=== PATIENT | female | born 1940 | race Caucasian/White ===

== ENCOUNTER 2024-09-14 11:31 | Outpatient (REF) | payer OTHER, SELFPAY ==
[2024-09-14 13:18] LABS: Hematocrit 39.5 % (37.0-47.0); Mean Corpuscular HGB Conc 32.9 g/dl (31.0-35.0); Mean Corpuscular Hemoglobin 30.7 pg (27.0-33.0); Mean Corpuscular Volume 93.2 fL (80.0-98.0); Mean Platelet Volume 10.9 fL (9.4-12.3); Platelet Count 223 X10*3/uL (160-400); Red Blood Count 4.24 X10*6/uL (4.20-5.50); Red Cell Distribution Width 13.2 % (11.0-16.0); White Blood Count 10.7 X10*3/uL (4.8-10.8)
[2024-09-14 13:34] LABS: Estimated Average Glucose 117 mg/dL; Hemoglobin A1C 143.1148 umol/L; Hemoglobin A1c % 5.7 % (<6.0); Total Hemoglobin (HGBA1C) 3709.0907 umol/L
--- OUTSIDE RECORDS SUMMARY | 2024-09-14 13:55 | XMS_ITS | Continuity of Care Document ---
Author Organization [place] [facility], [facility] Address [address] [place] [address] [place] [address] Assessment Encounter Date Assessment Date Assessment LastModified by Organization Details LastModified Time 09/14/2024 09/14/2024 Patient presented for medication refill. Patient tolerating medication well at current dose without adverse effects. Refilled as below. Discussed plan with patient, who expressed understanding . Follow up as noted below. [email or web address] Not available 09/14/2024 10:42:22 Plan of Treatment Reminders Order Date Submit Date Provider Last Modified By Organization Details Last Modified Time Details Appointments NEW PROBLEM 15 2024 10:30A M KEVIN PATEL Not available Not available Not available Lab PTH (parathyr oid hormone), intact + calcium, serum or plasma 2024 025 [facility], [address] [place] [address], [id number], 09/14/2024 10:48:27 vitamin B12 + folate, serum or blood 2024 025 [facility], [address] [place] [address], [id number], 09/14/2024 10:48:28 iron + TIBC + ferritin, serum 2024 025 [facility], [address] [place] [address], [id number], 09/14/2024 10:48:28 vitamin D, 25-hydrox y, total, serum 2024 025 [facility], [address] [place] [address], [place], [address], 09/14/2024 10:48:27 TSH + free T4, serum 2024 [facility], [address] [place] [address], [id number], 09/14/2024 10:48:28 CBC w/ auto diff 2024 [facility], [address] [place] [address], [id number], 09/14/2024 10:48:27 hemoglobi n A1c, QN, blood 2024 [facility], [address] [place] [address], [place], [address], 09/14/2024 10:48:27 CMP, serum or plasma 2024 025 [facility], [address] [place] [address], [place], [address], 09/14/2024 10:48:[address] referral 2024 [facility], [address], [place], [address], 09/14/2024 13:36:14 occupatio nal therapist referral 2024 025 [facility], [address], [address], [place], [address], 09/14/2024 13:35:20 Procedures None recorded. Surgeries None recorded. Imaging MAMMO, screening , digital, bilateral 2024 025 [email or web address] [facility], [address] [facility], [place], [address], 09/14/2024 11:35:41 PFT, complete 2024 025 [email or web address] [facility], [address] [place], [address], 09/14/2024 11:35:41 CT, chest, w/o contrast 2024 025 [email or web address] [facility], [address] [place], [address], 09/14/2024 11:35:41 Medication Orders None recorded. Patient TargetsNo targets recorded. Patient InstructionsNo instructions recorded. Reason for Referral Occupational Therapist Refer ral for Bilateral hand weakness bilateral hand weakness and stiffness, hx of OA Referring Physician: Stephanie Finch, Internal Medicine, Encounter Date: 09/14/2024 Medical I D Sales Referral for Moses ateral hearing loss needs eval for hearing loss Referring Physician: Stephanie Finch [facility], Encounter Date: 09/14/2024 Problems Name Problem SNOMED Code Status Onset Date Resolution Date Notes Provider Name and Address Organization Details Recorded Time Anxiety 77004424 Active 2022 Lexii resendez [facility] 3 12:04:11 Chronic sinusiti s 84608857 Active 2022 Lexii resendez [facility] 3 12:04:28 Bleeding from nose 152354843 Active 2022 Lexii resendez [facility] 3 12:04:41 Osteopor osis 93935481 Active 2022 Lexii resendez [facility] 3 12:04:49 Weight loss 82582058 Active 2022 Lexii resendez [facility] 3 12:05:09 Gastroes ophageal reflux disease 607983623 Active 2022 Lexii resendez [facility] 3 12:05:23 Candidia sis 64907273 Active 2022 Lexii resendez [facility] 3 12:05:28 Esophagi tis 75566161 [facility]omnia 963688827 [facility] 12:[facility]57 Gastriti s 9440130 [facility] 12:06[facility]02 Dehydrat ion 18446084 Active 2022 KEVIN PATEL [address] [place], [address], [facility] 3 11:56:03 White blood cell count outside referenc e range 413922521 Active 2022 related to teeth infection KEVIN PATEL [address] [place], [address], [facility] 3 12:04:10 Muscle weakness 96177388 Active 2022 KEVIN PATEL [address] [place] [address], [address], [facility] 3 12:04:35 Mitral valve disorder 81913017 Active 2022 EKVIN PATEL [address] [place] [address], [address], [facility] 3 12:12:00 Vertigo 760393669 Active 2022 KEVIN PATEL [address] [place] [address], [address], [facility] 3 16:29:47 Candidia sis of skin 27143324 Active 2023 KEVIN APTEL [address] [place] [address], [address], [facility] 4 14:21:55 Fatigue 21896192 Active 2023 KEVIN PATEL [address] [place] [address], [address], [facility] 4 14:27:28 Failure of dental prosthes is 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 Active 2023 KEVIN PATEL [address] [place], [address], [facility] 4 14:34:38 Pain in right thumb 22447685936 99974 Active 2023 KEVIN PATEL [address] [place], [address], [facility] 4 14:35:48 Otalgia of right ear 0693942154 Active 2023 KEVIN PATEL [address] [place], [address], [facility] 4 14:40:02 Bilatera l hand weakness 00065215317 289628 Active 2024 KEVIN PATEL [address] [place], [address], [facility] 5 10:51:16 Internal hemorrho ids 31318578 Active 2024 KEVIN PATEL [address] [place], [address], [facility] 5 10:54:53 Dyspnea 743223363 Active 2024 KEVIN PATEL [address] [place], [address], [facility] 5 10:59:04 Bilatera l hearing loss 00590590 Active 2024 KEVIN PATEL [address] [place], [address], [facility] 5 11:05:01 Notes:reports having a weak respiratory system Problem Notes None recorded. Procedures Surgical History Date Name Laterality Status Provider Name and Address Organization Details Recorded Time Total Hysterectomy completed Lexii Roman [facility] 07/17/2022 12:03:40 Imaging Results None recorded. Procedure Notes None recorded. Medical Equipment None Reported. Allergies Allergen ID Allergen Name Allergen Category Reaction Reaction Severity Criticality Documentation Date Start Date Code Code System Note Provider Name and Address Organization Details Recorded Time 6368 penicilli n V Not available Not available Not available Not available 07/17/2022 7984 [facility] 12:03:51 6369 azithromy roly medicatio n Not available Not available Not available 07/19/2022 96324 RxNorm rapid heart beat KEVIN PATEL [address] [place], [address] 11:44:53 Medications Name Sig Start Date Stop Date Status Note LastModified by Organization Details LastModified Time cephalexin 250 mg capsule TAKE 1 CAPSULE BY MOUTH THREE TIMES DAILY DIRECTED . START 1 DAY BEFORE SURGERY 07/17 completed Not Available Not Available Not Available Remeron 15 mg tablet Take 1 tablet every day by oral route. 01/25 completed uses as needed Not Available Not Available Not Available fluorourac il 5 % topical cream APPLY TO AFFECTED SCALY AREAS FOR SEVERAL WEEKS UNTIL RED AND CRUSTED TWICE DAILY 09/14 completed Not Available Not Available Not Available cephalexin 500 mg capsule TAKE 1 CAPSULE BY MOUTH THREE TIMES DAILY DIRECTED . START 1 DAY BEFORE SURGERY 09/14 completed Not Available Not Available Not Available ketoconazo le 2 % topical cream APPLY TOPICALL Y TO THE AFFECTED AREA DAILY 09/14 completed Not Available Not Available Not Available doxycyclin e hyclate 100 mg tablet TAKE 1 TABLET BY MOUTH TWICE DAILY 07/17 completed Not Available Not Available Not Available chlorhexid ine gluconate 0.12 % mouthwash RINSE WITH 15ML TWICE DAILY THEN SPIT OUT. START MORNING AFTER SURGERY 07/17 completed Not Available Not Available Not Available Vitamin D active Not Available Not Deisy ilable Not Available cephalexin 750 mg capsule TAKE 1 CAPSULE BY MOUTH TWICE DAILY DIRECTED 07/17 completed Not Available Not Available Not Available Clear Eyes Dry Itchy Relief active Not Available Not Available Not Available Vitals Date Recorded Body height Body mass index (BMI) Body weight Heart rate Oxygen saturation Oxygen saturation in Arterial blood by Pulse oximetry Systolic blood pressure Diastolic blood pressure Provider Name and Address Organization Details Last Updated DateTime 5 160.02 cm 16.8 kg/m2 59000.6 3 g 74 /min 93 % 93 % 122 mm[Hg] 80 mm[Hg] Lesia Garrett [facility] 10:30:17 Social History Question Answer Notes LastModified by Organizat ion Details LastModified Time Tobacco Smoking Status Former Smoker Lexii resendez [facility] 07/17/2022 12:03:24 What Was The Date Of Your Most Recent Tobacco Screening? 09/14/2024 [email or web address] Information not available 09/14/2024 Do You Or Have You Ever Used Any Other Forms Of Tobacco Or Nicotine? No [email or web address] Information not available 07/17/2022 Sex: Unknown Functional Status None recorded. Mental Status None recorded. Family History Nothing Reported. Medical History No medical history recorded. Gynecological HistoryNo gynecological history recorded. Obstetrics History GPAL:G 0 P 0 0 0 0 Immunizations Vaccine Type Date Status Note Provider Nam e and Address Organization Details Recorded Time influenza, unspecified formulation 03/14/2022 completed Lexii resendez [facility] 07/19/2022 11:22:45 Past Encounters Encounter ID Performer Location Encounter Start Date Encounter Closed Date Diagnosis/Indication Diagnosis SNOMED-CT Code Diagnosis ICD10 Code Diagnosis Note [id number] KEVIN PATEL [facility] [address] [place] [address] 09/14/2024 10:15:26 09/14/2024 11:35:40 Renewal of prescription 854777084 Z76.0 stable Fatigue 64665523 R53.83 needs routine blood work 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 following with her dentist Screening mammography 24 289308 Z12.31 would like screening MM White bloo d cell count outside reference range 236495212 R79.89 still working with dentistumair s see a hematologi st through [facility] who monitors her blood counts Candidiasis of skin 4988 3006 B37.2 stable, has been good for awhile, does have cream on active med list Bilateral hand weakness 8803334228 7813044 R29.898 will set up with alt therapist Internal hemorrhoids 904 74791 K64.8 stable Dyspnea 275244280 R06.00 ?COPD from previous PCP/pulm, hasn't been recheck in 6 years or so Bilateral hearing loss 42993700 H91.93 will set up Health Concerns Section Related Observation LastModified by Organization Detai ls LastModified Time None Recorded Concern Status LastModified by Organization Details LastModified Time None Recorded Payers Encounter Date Sequence Insurance Name Policy Number Policy Jiménez Covered Member ID Jiménez Member ID Guarantor Name 09/14/2024 2 [facility] F (MEDICARE SUPPLEMENT) [id number] 2 Rosa Michael [id number] Rosa Rodriguez 09/14/2024 1 [place] [employer] Rosa Cespedes Michael [id number] Rosa Rodriguez Notes Date Note Type Note Provider Name and Address Organization Details Recorded Time 09/15/19 25 text/htm l medication check BW, needs new lab work orderwas being tested for cause of fatigue and to check her CBC from previous dental implant the patient is still working with dentist for better implant the patient has concerns about her vitamin levels, recommended vit D and PTH testing lightheadedness, questioning prior with pulm during hospital stay if she has COPDher o2 sat is 93% today which is unusual for her to be so low the patient denies chest pain, denies sob the patient reports that she is otherwise doing well the patient reports some ear pain/ could be related to light headednessrecommended f/u with audio for updated hearing exam the patient denies any cardiac symptoms hx of MVP KEVIN PATEL [address] [place] [address], [place], [address], [facility] 09/14/2024 11:09:26 OBGyn Episode No OBEpisode recorded.
--- OUTSIDE RECORDS SUMMARY | 2024-09-14 13:56 | XMS_ITS | Data Portability ---
Author Organization [facility] Service Address [address] [place] [address] Assessment Encounter Date Assessment Date Assessment LastModified by Organization Details LastModified Time 01/25/2023 01/25/2023 The patient denies little pleasure in activities they find enjoyable, feeling depressed, difficulties sleeping, feeling tired or having little energy, change in appetite, feeling guilty, overwhelmed or unmotivated. The patient denies suicidal ideation, thoughts of hurting themselves or others. Their mood is appropriate, they show good judgement and clear understanding of the conversation. They are orientated to time, place and person. They are not expressing any concerning thoughts or actions that would need further investigation and treatment for mental health. The patient denies recent falls or recurrent falls. Denies instability, weakness, abnormal gait, or difficulties with movement. The patient wears correct, supportive shoes and is not otherwise severely visually impaired. The patient is full weight bearing and if using the assistance of a cane or walker feels supported and stable with the use of such devices. All medical conditions have been taken into account that may pose a risk for the patient for falls. Home paulo, carpets and/or rugs do not pose a challenge for the patient. The patient has been educated about the use of vitamin D supplementation for bone health and prevention of hypotensive episodes that may increase risk for fall. All question and concerns were answered to the patient's satisfaction. [email or web address] Not available 01/25/2023 16:05:07 09/14/2024 09/14/2024 Patient presented for medication refill. Patient tolerating medication well at current dose without adverse effects. Refilled as below. Discussed plan with patient, who expressed understanding. Follow up as noted below. [email or web address] Not available 09/14/2024 10:42:22 Plan of Treatment Reminders Order Date Submit Date Provider Last Modified By Organization Details Last Modified Time Details Appointments NEW PROBLEM 15 2024 10:30A M KEVIN PATEL Not available Not available Not available Lab PTH (parathyr oid hormone), intact + calcium, serum or plasma 2024 025 [facility], [address] [place] [address], [id number], 09/14/2024 10:48:27 vitamin B12 + folate, serum or blood 2024 025 [facility], [address] [place] [address], [id number], 09/14/2024 10:48:28 iron + TIBC + ferritin, serum 2024 025 [facility], [address] [place] [address], [id number], 09/14/2024 10:48:28 vitamin D, 25-hydrox y, total, serum 2024 025 [facility], [address] [place] [address], [id number], 09/14/2024 10:48:27 TSH + free T4, serum 2024 025 [facility], [address] [place] [address], [id number], 09/14/2024 10:48:28 CBC w/ auto diff 2024 025 [facility], [address] [place] [address], [id number], 09/14/2024 10:48:27 hemoglobi n A1c, QN, blood 2024 025 [facility], [address] [place] [address], [address], 09/14/2024 10:48:27 CMP, serum or plasma 2024 025 [facility], [address] [place] [address], [place], [address], 09/14/2024 10:48:28 CBC w/ auto diff 2023 024 [facility] (Centralized Electronic Ordering - All Locations), Patient Can Go To The Location Of Their Choice, 10/21/2023 14:30:31 CMP, serum or plasma 2023 024 [facility] (Centralized Electronic Ordering - All Locations), Patient Can Go To The Location Of Their Choice, 10/21/2023 14:30:31 TSH + free T4, serum 2023 024 [facility] (Centralized Electronic Ordering - All Locations), Patient Can Go To The Location Of Their Choice, 10/21/2023 14:30:31 iron + TIBC + ferritin, serum 2023 024 [facility] (Centralized Electronic Ordering - All Locations), Patient Can Go To The Location Of Their Choice, 10/21/2023 14:30:31 vitamin B12 + folate, serum or blood 2023 024 [facility] (Centralized Electronic Ordering - All Locations), Patient Can Go To The Location Of Their Choice, 10/21/2023 14:30:31 vitamin D, 25-hydrox y, total, serum 2023 024 [facility] (Centralized Electronic Ordering - All Locations), Patient Can Go To The Location Of Their Choice, 10/21/2023 14:30:31 hemoglobi n A1c, QN, blood 2023 024 [facility] (Centralized Electronic Ordering - All Locations), Patient Can Go To The Location Of Their Choice, 10/21/2023 14:30:31 CBC w/ auto diff 2022 023 [facility], [address] [place] [address], [place], [address], 01/25/2023 16:19:08 CMP, serum or plasma 2022 023 [facility], [address] [place] [address], [place], [address], 01/25/2023 16:19:08 lipid panel, serum 2022 023 [facility], [address] [place] [address], [place], [address], 01/25/2023 16:19:08 hemoglobi n A1c, QN, blood 2022 023 [facility], [address] [place] [address], [place], [address], 01/25/2023 16:19:[address] referral 2024 025 [facility], [address] [facility], [place], [address], 09/14/2024 13:36:14 occupatio nal therapist referral 2024 025 [facility] [place], [address], [address], [place], [address], 09/14/2024 13:35:20 otolaryng ologist referral 2023 024 [email or web address] Vika Harp MD, [address] [facility], [place], [address], 10/22/2023 08:29:38 occupatio nal therapist referral 2023 024 [email or web address] [facility], [address] , [place], [address], 10/22/2023 08:29:38 physical therapist referral - just needs new referral from new PCP, patient already sees PT there 2022 023 [email or web address], [address], [place], [address], 07/27/2022 09:48:33 Procedures None recorded. Surgeries None recorded. Imaging MAMMO, screening , digital, bilateral 2024 025 [email or web address] [facility], [address] [place], [address], 09/14/2024 11:35:41 PFT, complete 2024 025 [email or web address] [facility], [address] [place] [address], [address], 09/14/2024 11:35:41 CT, chest, w/o contrast [address] [facility], [address] [place], [address], 09/14/2024 11:35:41 MAMMO, screening , digital, bilateral 2022 023 [email or web address] 10 [facility], [address] [place], [address], 02/08/2023 14:08:07 US, echocardi ogram 2022 023 [facility], [address] [place], [address], 01/29/2023 08:17:33 Medication Orders ketoconaz ole 2 % topical cream 2023 024 Not available 09/14/2024 10:25:23 Patient TargetsNo targets recorded. Patient InstructionsNo instructions recorded. Reason for Referral Physical Therapist Referral for Muscle weakness just need doctor referral just needs new referral from new PCP, patient already sees PT there Referring Physician: Stephanie Finch, Internal Medicine, Encounter Date: 07/19/2022 Occupational Therapist Refer ral for Pain in right thumb right thumb pain due to OA and contracture Referring Physician: Stephanie Finch [facility], Encounter Date: 10/21/2023 Shrimp Peeling Machine Tender Referral fo r Otalgia of right ear hx of shingles affecting right ear, causing scarring on the nerve per last ENT in [place] Referring Physician: Stephanie Finch [facility], Encounter Date: 10/21/2023 Occupational Therapist Refer ral for Bilateral hand weakness bilateral hand weakness and stiffness, hx of OA Referring Physician: Stephanie Finch [facility], Encounter Date: 09/14/2024 Clerical Production Worker Referral for Moses ateral hearing loss needs eval for hearing loss Referring Physician: Stephanie Finch [facility], Encounter Date: 09/14/2024 Results Created Date Observation Date Name Description Value Unit Range Abnormal Flag Note LastModifiedBy Organization Detail LastModifiedTime 02/29/20 23 02/28/2023 MAMMO , scree trav, digit al, bilat eral No observ ation record ed. [email or web address] [facility] [address] [facility], [place], [address], 02/28/2023 17:13:19 Result Notes None recorded. Problems Name Problem SNOMED Code Status Onset Date Resolution Date Notes Provider Name and Address Organization Details Recorded Time Anxiety 74358527 Active 2022 [facility] 3 12:04:11 Chronic sinusiti s 86271675 Active 2022 [facility] 3 12:04:28 Bleeding from nose 819485766 Active 2022 [facility] 3 12:04:41 Osteopor osis 67994853 Active 2022 [facility] 3 12:04:49 Weight loss 35249900 Active 2022 [facility] 3 12:05:09 Gastroes ophageal reflux disease 595098930 Active 2022 [facility] 3 12:05:23 Candidia sis 99071179 Active 2022 Lexii Roman mal, [facility] 3 12:05:28 Esophagi tis 45986153 Active 2022 Lexii Abel resendez, [facility] 3 12:05:50 Insomnia 974734466 Active 2022 Lexii Roman mal, [facility] 3 12:05:57 Gastriti s 1473684 Active 2022 Lexii resendez, [facility] 3 12:06:02 Dehydrat ion 92543363 Active 2022 KEVIN PATEL [address] [place], [address], [facility] 3 11:56:03 White blood cell count outside referenc e range 056166409 Active 2022 related to teeth infection KEVIN PATEL [address] [place], [address], [facility] 3 12:04:10 Muscle weakness 31819320 Active 2022 KEVIN PATEL [address] [place], [address], [facility] 3 12:04:35 Mitral valve disorder 78588181 Active 2022 KEVIN PATEL [address] [place], [address], [facility] 3 12:12:00 Vertigo 010481580 Active 2022 KEVIN PATEL [address] [place], [address], [facility] 3 16:29:47 Candidia sis of skin 35612178 Active 2023 KEVIN PATEL [address] [place], [address], [facility] 4 14:21:55 Fatigue 45141526 Active 2023 KEVIN PATEL [address] [place], [address], [facility] 4 14:27:28 Failure of dental prosthes is 353434025 Active 2023 KEVIN PATEL [address] [place], [address], [facility] 4 14:34:38 Pain in right thumb 18277226867 76640 Active 2023 KEVIN PATEL [address] [place], [address], [facility] 4 14:35:48 Otalgia of right ear 1734184809 Active 2023 KEVIN PATEL [address] [place], [address], [facility] 4 14:40:02 Bilatera l hand weakness 77574120784 107707 Active 2024 KEVIN PATEL [address] [place], [address], [facility] 5 10:51:16 Internal hemorrho ids 14602590 Active 2024 KEVIN PATEL [address] [place], [address], [facility] 5 10:54:53 Dyspnea 899876442 Active 2024 KEVIN PATEL [address] [place], [address], [facility] 5 10:59:04 Bilatera l hearing loss 46932118 Active 2024 KEVIN PATEL [address] [place], [address], [facility] 5 11:05:01 Notes:reports having a weak respiratory system Problem Notes None recorded. Procedures Surgical History Date Name Laterality Status Provider Name and Address Organization Details Recorded Time Total Hysterectomy completed Lexii Abel [facility] 07/17/2022 12:03:40 Imaging Results Imaging Date Name Status LastModified by Organiz ation Details LastModified Time 02/28/2023 MAMMO, screening, digital, bilateral completed [facility] [address] , [place], [address], 02/28/2023 17:13:19 Procedure Notes None recorded. Medical Equipment None Reported. Allergies Allergen ID Allergen Name Allergen Category Reaction Reaction Severity Criticality Documentation Date Start Date Code Code System Note Provider Name and Address Organization Details Recorded Time 6368 penicilli n V Not available Not available Not available Not available 07/17/2022 7984 RxNorm Lexii Roman [facility] 3 12:03:51 6369 azithromy roly medicatio n Not available Not available Not available 07/19/2022 07249 RxNorm rapid heart beat KEVIN PATEL [address] [place] [address], [address] [facility] 3 11:44:53 Medications Name Sig Start Date Stop [...] and Address Organization Details Last Updated DateTime 3 160.02 cm 18.2 kg/m2 73039.5 8 g 97 /min 95 % 95 % 122 mm[Hg] 62 mm[Hg] Lexii Roman [facility] 3 11:24:36 Date Recorded Body height Body mass index (BMI) Body weight Heart rate Oxygen saturation Oxygen saturation in Arterial blood by Pulse oximetry Systolic blood pressure Diastolic blood pressure Provider Name and Address Organization Details Last Updated DateTime 3 160.02 cm 18.2 kg/m2 69921.9 4 g 93 /min 96 % 96 % 116 mm[Hg] 68 mm[Hg] KEVIN PATEL [address] [place], [address] [place] [address] Internal [facility] 3 15:51:38 Date Recorded Body height Body mass index (BMI) Body weight Heart rate Oxygen saturation Oxygen saturation in Arterial blood by Pulse oximetry Systolic blood pressure Diastolic blood pressure Provider Name and Address Organization Details Last Updated DateTime 4 160.02 cm 16.8 kg/m2 62405.8 4 g 79 /min 97 % 97 % 118 mm[Hg] 74 mm[Hg] Lesia Tucker [facility] 4 14:18:13 Date Recorded Body height Body mass index (BMI) Body weight Heart rate Oxygen saturation Oxygen saturation in Arterial blood by Pulse oximetry Systolic blood pressure Diastolic blood pressure Provider Name and Address Organization Details Last Updated DateTime 5 160.02 cm 16.8 kg/m2 79619.6 3 g 74 /min 93 % 93 % 122 mm[Hg] 80 mm[Hg] Lesia Tucker [facility] 10:30:17 Social History Question Answer Notes LastModified by Organizat ion Details LastModified Time Tobacco Smoking Status Former Smoker Lexii resendez [facility] 07/17/2022 12:03:24 What Was The Date Of Your Most Recent Tobacco Screening? 09/14/2024 Information not available 09/14/2024 Do You Or [...] Time influenza, unspecified formulation 03/14/2022 completed Lexii Abel resendez [facility] 07/19/2022 11:22:45 Past Encounters Encounter ID Performer Location Encounter Start Date Encounter Closed Date Diagnosis/Indication Diagnosis SNOMED-CT Code Diagnosis ICD10 Code Diagnosis Note [id number] KEVIN PATEL [facility] [address] [address] 07/19/2022 11:14:29 07/19/2022 12:20:22 Weight loss 39655031 R63.4 improving with new foods Osteoporosis 02917680 M8 1.0 will need fu bone density screening Gastroesop hageal reflux disease 209687230 K21.9 stable Candidiasis 20487992 B37 .2 uses ketoconazo le cream (happens in her groin) Chronic sinusitis 881509 00 J32.0 recurrent acute on chronic infections Dehydration 62666825 E86 .0 has had issues with dehydratio n in the pastdoing better with now using liquid IV White bloo d cell count outside reference range 969943987 R79.89 related to her teeth infection Muscle weakness 58338855 M62.81 sees synergymay need an order from our office Anxiety 15197344 F41.1 discussed with her talking to her insurance for providerso oes not want one now [id number] KEVIN PATEL [facility] [address],[place] [address] 01/25/2023 15:45:51 01/25/2023 16:35:43 Anxiety 11781995 F41.1 stable Gastroesop hageal reflux disease 562263593 K21.9 stable Mitral valve disorder 11 854263 I05.1 stable Weight loss 50897938 R63 .4 improving with new foods Adult heal th examination 731508117 Z00.00 needs routine lab work Screening mammography 24 095353 Z12.31 would like screening MM Vertigo 373823645 R42 related to inner earonly happens with going up from laying to sitting [id number] KEVIN PATEL [facility] [address], [place] [address] 10/21/2023 14:06:41 10/22/2023 08:29:38 Depression screening 224384197 Z13.31 stable Candidiasis of skin 4988 3006 B37.2 needs refill White bloo d cell count outside reference range 472758648 R79.89 related to her teeth infectiond oes see a hematologi st through [facility] who monitors her blood counts Fatigue 62068828 R53.83 needs routine blood work 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 following with her dentist Pain in right thumb 1076 983773 202866 M79.644 her current PT suggested f/u with OTwill send up referral Otalgia of right ear 679 5728418 H92.01 will send referral over to ENT office [id number] KEVIN PATEL [facility] [address], [place] [address] 09/14/2024 10:15:26 09/14/2024 11:35:40 Renewal of prescription 577171053 Z76.0 stable Fatigue 51896365 R53.83 needs routine blood work Failure of dental prosthesis 155938125 M27.69 following with her dentist Screening mammography 24 657497 Z12.31 would like screening MM White bloo d cell count outside reference range 262113113 R79.89 still working with dentistdoe s see a hematologi st through [facility] who monitors her blood counts Candidiasis of skin 4988 3006 B37.2 stable, has been good for awhile, does have cream on active med list Bilateral hand weakness 2234230542 3616101 R29.898 will set up with alt therapist Internal hemorrhoids 904 84549 K64.8 stable Dyspnea 675580217 R06.00 ?COPD from previous PCP/pulm, hasn't been recheck in 6 years or so Bilateral hearing loss 87046519 H91.93 will set up Health Concerns Section Related Observation LastModified by Organization Detai ls LastModified Time None Recorded Concern Status LastModified by Organization Details LastModified Time None Recorded Advance Directives Directive None Recorded Payers Encounter Date Sequence Insurance Name Policy Number Policy Jiménez Covered Member ID Jiménez Member ID Guarantor Name 07/19/2022 2 [employer] - SENIOR SERVICES PLAN F (MEDICARE SUPPLEMENT) [id number] 2 Rosa Speckels [id number] Rosa M Speckels 07/19/2022 1 [place] Rosa M Speckels [id number] Rosa M Speckels 01/25/2023 2 [employer] - SENIOR SERVICES PLAN F (MEDICARE SUPPLEMENT) [id number] 2 Rosa Speckels [id number] Rosa M Speckels 01/25/2023 1 [place] Rosa M Speckels [id number] Rosa M Speckels 10/21/2023 2 [employer] - SENIOR SERVICES PLAN F (MEDICARE SUPPLEMENT) [id number] 2 Rosa Speckels [id number] Rosa M Speckels 10/21/2023 1 [place] Rosa M Speckels [id number] Rosa M Speckels 09/14/2024 2 [employer] - SENIOR SERVICES PLAN F (MEDICARE SUPPLEMENT) [id number] 2 Rosa Speckels [id number] Rosa M Speckels 09/14/2024 1 [place] Rosa M Speckels [id number] Rosa M Speckels Notes Date Note Type Note Provider Name and Address Organization Details Recorded Time 07/19/19 23 text/htm l NPV the patient has multiple concerns today she would like to addressthe patient reports that she has been having right thumb pain, at the base of hertendonitis due to repetitive motion; given diclofenac gelcan also use cold compresses and tumeric OTC for inflammationavoid NSAIDs skin lesion: dark lesion under the right pointer finger, distally, concerned for possible malignancy, already has a derm that she is seeing soon per patient the patient agreed to contacting derm to be put on cancellation list to be seen sooner allergies: to all mold and has had sensitivities to a lot of abxtwo she can tolerate listed in her alert sectionhas a very poor reaction to azithromycin (rapid heartbeat and chest pain) the patient reports that she has a sensitive stomach (lives a [facility])the patient has a hard time with the food they get hershe gets pre-made meals for the [place] patient reports that when she has eats them she gets very bad gas and upset stomach teeth infections: the patient sees a drum loader and unloader for mutliple teeth infections and teeth problemsthinks the use of abx also causes a lot of her stomach problemshas settled down according to the patient the pt has had shingles before with lingering post herpetic neuralgiahas since resolved hx of elevated WBC related to infection of the teeth, levels trended down prior to appt anxiety: pt repoorts that she has intermittent anxiety, anxiety attacks KEVIN PATEL [address] [place], [address], [facility] 07/19/2022 12:13:47 01/26/20 23 text/htm l f/u anxiety: stabledoing really well GERD: stable Mitral valve disorder: stable weight loss: stable; up from last time BP is excellent the patient is doing wellfungal infection has cleared up both groin and right axilla has another tooth infectionsees her drum loader and unloader working about getting a partialwill fu with them discussed probiotic use for since she has been using abx for her dental infectionsgas is most likely related to this will set up with maggie againwasn't able to do it at her last pcp office saw Dr. Martínez to talk about blepharoplastydecided not to go through with procedure will hold on ENT referral for vertigo KEVIN PATEL [address] [place], [address], [facility] 01/25/2023 16:35:23 10/21/19 24 text/htm l c/o groin infection needs refill of the ketoconazole 2%worked really well with the armpit and groin areas, having a flare-upwill refill the script the patient has had 7 root canals in the last year due to recurrent infectionsthe patient is working with an oral surgeon, drum loader and unloader and her regular dentist the patient sees them routinely the patient reports that she has issues developing fistulas sees bone drier for evaluation for the WBC elevationmore related to her recurrent infections has hx of cerumen impaction and hx of scarring in the right ear due to shingles needs BW needs new ENT referral for evaluation of previous scarring of the ENT discussed corn on her left foot, will continue to monitorneeds to change out her insert stool and hemorrhoid issues improvedhappens when she had diarrhea due to milk use KEVIN PATEL [address] [place], [address], [facility] 10/21/2023 14:46:56 09/15/19 25 text/htm l medication check BW, [...] cardiac symptoms hx of MVP KEVIN PATEL [address] [place], [address], [facility] 09/14/2024 11:09:26 OBGyn Episode No OBEpisode recorded.
--- OUTSIDE RECORDS SUMMARY | 2024-09-14 13:56 | XMS_ITS | Patient Health Record ---
Author Organization [facility], Address [address] [place] [address] Care Team Providers Care Jewel Sawyer Name Role Phone Suleman Ybarra MD Primary Care Provider UnavailFelipe Flores Unavailable [phone] Reason For Referral No Information Plan Of Treatment No Information Insurance Providers Payer Name Payer Address Payer Phone Subscriber Number Group Number Insured Name Patient Relationship to Insured Coverage Start Date Coverage End Date Medicare Part B [employer] [address] [facility] [place] [phone] [id number] Rosa Rodriguez Self - patient is the insured [employer] [address] [place] [address] [id number] Rosa Rodriguez Self - patient is the insured
[2024-09-14 14:06] LABS: Thyroid Stimulating Hormone 1.61 uIU/mL (0.32-4.0)
[2024-09-14 14:24] LABS: Atypical Lymph Absolute Manual 0.3 x10*3/uL; Atypical Lymphs Percent Manual 3 % (0-6); Basophils Abs Manual 0.1 X10*3/uL (0.0-0.2); Basophils Percent Manual 1 % (0-2); Eosinophils Absolute Manual 0.1 X10*3/uL (0.0-0.4); Eosinophils Percent Manual 1 % (0-4); Lymphocytes Absolute Manual 6.4 X10*3/uL (1.2-4.9); Lymphocytes Percent Manual 60 % (20-40); Neutrophils Percent Manual 35 % (45-73)
[2024-09-14 14:26] LABS: Platelet Estimate NORMAL (NORMAL); Platelet Morphology Comment NORMAL; RBC Morphology NORMAL
[2024-09-14 14:27] LABS: Smudge Cells PRESENT
[2024-09-14 14:28] LABS: Band Neutrophils Percent 0 % (3-5); Neutrophils Absolute Manual 3.7 X10*3/uL (2.0-8.3)
[2024-09-14 14:36] LABS: Anion Gap 13 (12-20)
[2024-09-14 14:48] LABS: Alanine Aminotransferase 22 U/L (0-31); Albumin Level 4.2 g/dL (3.5-5.0); Alkaline Phosphatase 76 U/L (39-117); Aspartate Amino Transferase 38 U/L (5-31); Bilirubin Total 0.3 mg/dL (0.0-1.0); Blood Urea Nitrogen 13 mg/dL (9-16); Calcium 9.5 mg/dL (8.4-10.2); Carbon Dioxide 30 mmol/L (22-29); Chloride 103 mmol/L (96-108); Estimated Glomerular Filt Rate > 60; Glucose Random 82 mg/dL (60-115); Potassium 4.9 mmol/L (3.3-5.1); Sodium 141 mmol/L (135-145); Total Protein 7.4 g/dL (6.5-8.0)
[2024-09-14 15:46] LABS: T4 Thyroxine 6.8 ug/dL (4.5-12.0)
== END 2024-09-14 11:32 | disposition home or self-care (01) ==
LOC: HO.MANLDS 11:31
PROVIDERS: Visit Provider Physician Assistant
DX: D47.9 Neoplasm of uncertain behavior of lymphoid, hematopoietic and related tissue, unspecified (principal); R53.83 Other fatigue; M27.69 Other endosseous dental implant failure; Z13.1 Encounter for screening for diabetes mellitus
CPT/HCPCS: 36415; 80053; 83036; 84436; 84443; 85007; 85025; 85027; 88184; 88185

== ENCOUNTER 2024-09-18 14:31 | Outpatient (REF) | payer OTHER, SELFPAY ==
--- OUTSIDE RECORDS SUMMARY | 2024-09-18 14:48 | XMS_ITS | Patient Health Record ---
Author Organization [facility], Address [address] [place] [address] Care Team Providers Care Lead Pressman R[employer] Name Role Phone Suleman Ybarra MD Primary Care Provider UnavailFelipe Flores Unavailable [phone] Reason For Referral No Information Plan Of Treatment No Information Insurance Providers Payer Name Payer Address Payer Phone Subscriber Number Group Number Insured Name Patient Relationship to Insured Coverage Start Date Coverage End Date Medicare Part B [employer] [address] [facility] [place] [phone] [id number] Rosa Rodriguez Self - patient is the insured [employer] [address] [place] [address] [phone] [id number] Rosa Rodriguez Self - patient is the insured
--- OUTSIDE RECORDS SUMMARY | 2024-09-18 14:48 | XMS_ITS | Continuity of Care Document ---
Author Organization [place] [facility], [facility] Address [address] [place] [address] Assessment Encounter Date Assessment Date Assessment LastModified [...] Organization Details Last Modified Time Details Appointments None recorded. Lab PTH (parathyro id hormone), intact + calcium, serum or plasma 2024 025 [facility], [address] [place] [address], [address], 10:48:27 vitamin B12 + folate, serum or blood 2024 025 [facility], [address] [place] [address], [address], 10:48:28 iron + TIBC + ferritin, serum 2024 025 [facility], [address] [place] [address], [address], 10:48:28 vitamin D, 25-hydroxy , total, serum 2024 025 [facility], [address] [place] [address], [address], 10:48:27 TSH + free T4, serum 2024 025 [facility], [address] [place] [address], [place], [address], 13:47:01 CBC w/ auto diff 2024 025 [facility], [address] [place] [address], [address], 10:48:27 hemoglobin A1c, QN, blood 2024 025 [facility], [address] [place] [address], [address], 10:48:27 CMP, serum or plasma 2024 025 [facility], [address] [place] [address], [place], [address], 13:47:01 Referral audiologis t referral 2024 025 [facility], [address] [facility], [place], [address], 08:19:33 occupation al therapist referral 2024 025 [facility] [place], [address], [address], [place], [address], 08:19:32 Procedures None recorded. Surgeries None recorded. Imaging MAMMO, screening, digital, bilateral 2024 025 [email or web address] [facility], [address] [place], [address], 11:35:41 PFT, complete 2024 025 [email or web address] [facility], [address] [place], [address], 5 11:35:41 CT, chest, w/o contrast 2024 025 [facility], [address] [place], [address], 5 08:19:45 Medication Orders None recorded. Patient TargetsNo targets recorded. Patient InstructionsNo instructions recorded. 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 Moses ateral hearing loss needs eval for hearing loss Referring Physician: [facility], Encounter Date: 09/14/2024 Problems Name Problem SNOMED Code Status Onset Date Resolution Date Notes Provider Name and Address Organization Details Recorded Time Anxiety 04442865 Active 2022 Lexii resendez [facility] 3 12:04:11 Chronic sinusiti s 17157848 Active 2022 Lexii resendez [facility] 3 12:04:28 Bleeding from nose 015504672 Active 2022 Lexii resendez [facility] 3 12:04:41 Osteopor osis 89261286 Active 2022 Lexii resendez [facility] 3 12:04:49 Weight loss 43581553 Active 2022 Lexii resendez [facility] 3 12:05:09 Gastroes ophageal reflux disease 981170378 Active 2022 Lexii resendez [facility] 3 12:05:23 Candidia sis 41104116 Active 2022 Lexii resendez [facility] 3 12:05:28 Esophagi tis 13541300 Active 2022 Lexii resendez [facility] 3 12:05:50 Insomnia 618122809 Active 2022 Lexii resendez [facility] 3 12:05:57 Gastriti s 3038070 [facility] 12:[facility] Dehydrat ion 23269726 Active 2022 KEVIN PATEL [address] [place], [address], [facility] 3 11:56:03 White blood cell count outside referenc e range 940579813 Active 2022 related to teeth infection KEVIN PATEL [address] [place], [address], [facility] 3 12:04:10 Muscle weakness 02105182 Active 2022 KEVIN PATEL [address] [place], [address], [facility] 3 12:04:35 Mitral valve disorder 08649926 Active 2022 KEVIN PATEL [address] [place], [address], 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 Active 2023 KEVIN PATEL [address] [place] [address] [place], [address], [facility] 4 14:34:38 Pain in right thumb 07337863832 31804 Active 2023 KEVIN PATEL [address] [place] [address], [address], [facility] 4 14:35:48 Otalgia of right ear 2418372700 Active 2023 KEVIN PATEL [address] [place] [address], [address], [facility] 4 14:40:02 Bilatera l hand weakness 45789087614 714060 Active 2024 KEVIN PATEL [address] [place] [address], [address], [facility] 5 10:51:16 Internal hemorrho ids 41338341 Active 2024 KEVIN PATEL [address] [place] [address], [address], [facility] 5 10:54:53 Dyspnea 045359299 Active 2024 KEVIN PATEL [address] [place] [address], [address], [facility] 5 10:59:04 Bilatera l hearing loss 27029001 Active 2024 KEVIN PATEL [address] [place] [address], [address], [facility] 5 11:05:01 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 Procedures Surgical History Date Name Laterality Status Provider Name and Address Organization Details Recorded Time Total Hysterectomy completed Lexii Roman [facility] 07/17/2022 12:03:40 Imaging Results None recorded. Procedure Notes None recorded. Medical Equipment None Reported. Allergies Allergen ID Allergen Name Allergen Category Reaction Reaction Severity Criticality Documentation Date Start Date Code Code System Note Provider Name and Address Organization Details Recorded Time 6368 penicilli n V Not available Not available Not available Not available 07/17/2022 7984 RxNorm Lexii Roman [facility], [facility] 12:03:51 6369 azithromy roly medicatio n Not available Not available Not available 07/19/2022 15240 RxNorm rapid heart beat KEVIN PATEL [address] [place], [address], [facility] 11:44:53 Medications Name Sig Start [...] Updated DateTime 5 160.02 cm 16.8 kg/m2 91015.6 3 g 74 /min 93 % 93 % 122 mm[Hg] 80 mm[Hg] Lesia Tucker [facility] 5 10:30:17 Social History Question Answer Notes LastModified by Organizat ion Details LastModified Time Tobacco Smoking Status Former Smoker Lexii resendez [facility] 07/17/2022 12:03:24 What Was The Date [...] influenza, unspecified formulation 03/14/2022 completed Lexii resendez [facility] 07/19/2022 11:22:45 Past Encounters Encounter ID Performer Location Encounter Start Date Encounter Closed Date Diagnosis/Indication Diagnosis SNOMED-CT Code Diagnosis ICD10 Code Diagnosis Note [id number] KEVIN PATEL 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 following with her dentist Screening mammography 24 521139 Z12.31 would like screening MM White bloo d cell count outside reference range 208065761 R79.89 still working with dentistdomeir s see a hematologi st through [facility] who monitors her blood counts Candidiasis of skin 4988 3006 B37.2 stable, has been good for awhile, does have cream on active med list Bilateral hand weakness 3579696760 0321081 R29.898 will set up with alt therapist Internal hemorrhoids 904 15668 K64.8 stable Dyspnea 693309995 R06.00 ?COPD from previous PCP/pulm, hasn't been recheck in 6 years or so Bilateral hearing loss 36456945 H91.93 will set up Health Concerns Section Related Observation LastModified by Organization Detai ls LastModified Time None Recorded Concern Status LastModified by Organization Details LastModified Time None Recorded Payers Encounter Date Sequence Insurance Name Policy Number Policy Jiménez Covered Member ID Jiménez Member ID Guarantor Name 09/14/2024 2 [facility] - [employer] PLAN F (MEDICARE SUPPLEMENT) [id number] Rosa Rodriguez [id number] Rosa Rodriguez 09/14/2024 1 [place]: [employer] Rosa Rodriguez [id number] Rosa Rodriguez Notes Date Note Type [...] cardiac symptoms hx of MVP KEVIN PATEL [address] [place] [address], [place], [address], [facility] 09/14/2024 11:09:26 OBGyn Episode No OBEpisode recorded.
--- OUTSIDE RECORDS SUMMARY | 2024-09-18 14:48 | XMS_ITS | Data Portability ---
Author Organization [facility] Home Service Address [address] [place] [address] Assessment Encounter Date Assessment Date Assessment LastModified [...] + calcium, serum or plasma 2024 025 [facility], [address] [place] [address], [address], 5 10:48:27 vitamin B12 + folate, serum or blood 2024 025 [facility], [address] [place] [address], [address], 10:48:28 iron + TIBC + ferritin, serum 2024 025 [facility], [address] [place] [address], [address], 5 10:48:28 vitamin D, 25-hydroxy , total, serum 2024 025 [facility], [address] [place] [address], [address], 5 10:48:27 TSH + free T4, serum 2024 025 [facility], [address] [place] [address], [address], 5 13:47:01 CBC w/ auto diff 2024 025 [facility], [address] [place] [address], [address], 5 10:48:27 hemoglobin A1c, QN, blood 2024 025 [facility], [address] [place] [address], [address], 5 10:48:27 CMP, serum or plasma 2024 025 [facility], [address] [place] [address], [place], [address], 5 13:47:01 CBC w/ auto diff 2023 024 [facility] (Centralized Electronic Ordering - All Locations), Patient Can Go To The Location Of Their Choice, 14:30:31 CMP, serum or plasma 2023 024 [facility] (Centralized Electronic Ordering - All Locations), Patient Can Go To The Location Of Their Choice, 14:30:31 TSH + free T4, serum 2023 024 [facility] (Centralized Electronic Ordering - All Locations), Patient Can Go To The Location Of Their Choice, 14:30:31 iron + TIBC + ferritin, serum 2023 024 [facility] (Centralized Electronic Ordering - All Locations), Patient Can Go To The Location Of Their Choice, 14:30:31 vitamin B12 + folate, serum or blood 2023 024 [facility] (Centralized Electronic Ordering - All Locations), Patient Can Go To The Location Of Their Choice, 14:30:31 vitamin D, 25-hydroxy , total, serum 2023 024 [facility] (Centralized Electronic Ordering - All Locations), Patient Can Go To The Location Of Their Choice, 14:30:31 hemoglobin A1c, QN, blood 2023 024 [facility] (Centralized Electronic Ordering - All Locations), Patient Can Go To The Location Of Their Choice, 4 14:30:31 CBC w/ auto diff 2022 023 [facility], [address] [place] [address], [place], [address], 3 16:19:08 CMP, serum or plasma 2022 023 [facility], [address] [facility], [place], [address], 3 16:19:08 lipid panel, serum 2022 023 [facility], [address] [facility] [facility], [place], [address], 3 16:19:08 hemoglobin A1c, QN, blood 2022 023 [facility], [address] [facility] [facility], [place], [address], 3 16:19:08 Referral audiologis t referral 2024 025 [email or web address] [facility], [address], [place], [address], 5 08:19:33 occupation al therapist referral 2024 025 [email or web address] [facility], [address], [address], [place], [address], 5 08:19:32 otolaryngo logist referral 2023 024 [email or web address] Vika Harp MD, [address] [place], [address], 4 08:29:38 occupation al therapist referral 2023 024 [email or web address] [facility], [address], [place], [address], 4 08:29:38 physical therapist referral - just needs new referral from new PCP, patient already sees PT there 2022 023 [email or web address] [facility], [address], [place], [address], 3 09:48:33 Procedures None recorded. Surgeries None recorded. Imaging MAMMO, screening, digital, bilateral 2024 025 [facility], [address] [place], [address], 5 11:35:41 PFT, complete [email or web address] [place] [address] [facility], [address] [place] [address], [address], 5 11:35:41 CT, chest, w/o contrast 2024 [facility], [address] [place] [address], [address], 5 08:19:45 MAMMO, screening, digital, bilateral 2022 023 [email or web address] 10 [facility], [address] [place], [address], 3 14:08:07 US, echocardio gram 2022 023 [facility], [address] [place], [address], 3 08:17:33 Medication Orders ketoconazo le 2 % topical cream 2023 024 [email or web address] Not available 5 10:25:23 Patient TargetsNo targets recorded. Patient InstructionsNo instructions recorded. Reason for Referral Physical Therapist Referral for Muscle weakness just need doctor referral just needs new referral from new PCP, patient already sees PT there Referring Physician: Stephanie Finch, Internal Medicine, Encounter Date: 07/19/2022 Occupational Therapist Refer ral for Pain in right thumb right thumb pain due to OA and contracture Referring Physician: Stephanie Finch, Internal Medicine, Encounter Date: 10/21/2023 Weaving Machine Operator Referral fo r Otalgia of right ear hx of shingles affecting right ear, causing scarring on the nerve per last ENT in [place] Referring Physician: Stephanie Finch [facility], Encounter Date: 10/21/2023 Occupational Therapist Refer ral for Bilateral hand weakness bilateral hand weakness and stiffness, hx of OA Referring Physician: Stephanie Finch [facility], Encounter Date: 09/14/2024 Lining Stamper Referral for Moses ateral hearing loss needs eval for hearing loss Referring Physician: Stephanie Finch Internal [facility], Encounter Date: 09/14/2024 Results Created Date Observation Date Name Description Value Unit Range Abnormal Flag Note LastModifiedBy Organization Detail LastModifiedTime 02/29/2002/28/2023 MAMMO , scree trav, digit al, bilat eral No observ ation record ed. jbigda [facility] [address] [place], [address], 02/28/2023 17:13:19 Result Notes None recorded. Problems Name Problem SNOMED Code Status Onset Date Resolution Date Notes Provider Name and Address Organization Details Recorded Time Anxiety 63413884 Active 2022 Lexii resendez [facility] 3 12:04:11 Chronic sinusiti s 42771053 Active 2022 Lexii resendez [facility] 3 12:04:28 Bleeding from nose 172466901 Active 2022 Lexii resendez [facility] 3 12:04:41 Osteopor osis 55853968 Active 2022 [facility] 3 12:04:49 Weight loss 22196824 Active 2022 Lexii resendez [facility] 3 12:05:09 Gastroes ophageal reflux disease 916708959 Active 2022 Lexii resendez [facility] 3 12:05:23 Candidia sis 03603048 Active 2022 Lexii resendez [facility] 3 12:05:28 Esophagi tis 08048629 Active 2022 Lexii resendez, [facility] 3 12:05:50 Insomnia 323850626 Active 2022 Lexii resendez, [facility] 3 12:05:57 Gastriti s 2055827 [facility] 12:06:02 Dehydrat ion 29730114 Active 2022 KEVIN PATEL [address] [place], [address], [facility] 3 11:56:03 White blood cell count outside referenc e range 480717026 Active 2022 related to teeth infection KEVIN PATEL [address] [place], [address], [facility] 3 12:04:10 Muscle weakness 32816705 Active 2022 KEVIN PATEL [address] [place], [address], [facility] 3 12:04:35 Mitral valve disorder 40577677 Active 2022 KEVIN PATEL [address] [place], [address], [facility] 3 12:12:00 Vertigo 187075918 Active 2022 KEVIN PATEL [address] [place] [address], [address], [facility] 3 16:29:47 Candidia sis of skin 14710004 Active 2023 KEVIN PATEL [address] [place] [address], [address], [facility] 4 14:21:55 Fatigue 94384543 Active 2023 KEVIN PATEL [address] [place] [address], [address], [facility] 4 14:27:28 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 2023 KEVIN PATEL [address] [place], [address], [facility] 4 14:34:38 Pain in right thumb 98000644106 96974 Active 2023 KEVIN PATEL [address] [place], [address], [facility] 4 14:35:48 Otalgia of right ear 1126321497 Active 2023 KEVIN PATEL [address] [place], [address], [facility] 4 14:40:02 Bilatera l hand weakness 89428003483 442311 Active 2024 KEVIN PATEL [address] [place], [address], [facility] 5 10:51:16 Internal hemorrho ids 51397004 Active 2024 KEVIN PATEL [address] [place], [address], [facility] 5 10:54:53 Dyspnea 880042287 Active 2024 KEVIN PATEL [address] [place], [place], , [facility] 5 10:59:04 Bilatera l hearing loss 68923740 Active 2024 KEVIN PATEL [address] [place], [address], [facility] 5 11:05:01 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 Procedures Surgical History Date Name Laterality Status Provider Name and Address Organization Details Recorded Time Total Hysterectomy completed Lexii Roman [facility] 07/17/2022 12:03:40 Imaging Results Imaging Date Name Status LastModified by Organiz ation Details LastModified Time 02/28/2023 MAMMO, screening, digital, bilateral completed [email or web address] [facility] [address] , [place], [address], 02/28/2023 17:13:19 Procedure Notes None recorded. Medical Equipment None Reported. Allergies Allergen ID Allergen Name Allergen Category Reaction Reaction Severity Criticality Documentation Date Start Date Code Code System Note Provider Name and Address Organization Details Recorded Time 6368 penicilli n V Not available Not available Not available Not available 07/17/2022 7984 RxNorm Lexii Roman [facility] 12:03:51 6369 azithromy roly medicatio n Not available Not available Not available 07/19/2022 64970 RxNorm rapid heart beat KEVIN PATEL [address] [place], [address], [facility] 11:44:53 Medications Name Sig Start Date Stop [...] TAKE 1 TABLET BY MOUTH TWICE DAILY 02/07 /2023 completed Not Available Not Available Not Available [...] Updated DateTime 3 160.02 cm 18.2 kg/m2 42203.5 8 g 97 /min 95 % 95 % 122 mm[Hg] 62 mm[Hg] Lexii Roman [facility] 3 11:24:36 Date Recorded Body height Body mass index (BMI) Body weight Heart rate Oxygen saturation Oxygen saturation in Arterial blood by Pulse oximetry Systolic blood pressure Diastolic blood pressure Provider Name and Address Organization Details Last Updated DateTime 3 160.02 cm 18.2 kg/m2 85995.9 4 g 93 /min 96 % 96 % 116 mm[Hg] 68 mm[Hg] KEVIN PATEL [address] [place] [address], [address] [place] [address] Internal [facility] 3 15:51:38 Date Recorded Body height Body mass index (BMI) Body weight Heart rate Oxygen saturation Oxygen saturation in Arterial blood by Pulse oximetry Systolic blood pressure Diastolic blood pressure Provider Name and Address Organization Details Last Updated DateTime 4 160.02 cm 16.8 kg/m2 79174.8 4 g 79 /min 97 % 97 % 118 mm[Hg] 74 mm[Hg] Lesia Tucker [facility] 4 14:18:13 Date Recorded Body height Body mass index (BMI) Body weight Heart rate Oxygen saturation Oxygen saturation in Arterial blood by Pulse oximetry Systolic blood pressure Diastolic blood pressure Provider Name and Address Organization Details Last Updated DateTime 5 160.02 cm 16.8 kg/m2 67661.6 3 g 74 /min 93 % 93 % 122 mm[Hg] 80 mm[Hg] Lesia Tucker [facility] 10:30:17 Social History Question Answer Notes LastModified by Organizat ion Details LastModified Time Tobacco Smoking Status Former Smoker Lexii Abel resendez [facility] 07/17/2022 12:03:24 What Was The Date [...] Immunizations Vaccine Type Date Status Note Provider Bud worley and Address Organization Details Recorded Time influenza, unspecified formulation 03/14/2022 completed Lexii Abel resendez [facility] 07/19/2022 11:22:45 Past Encounters Encounter ID Performer Location Encounter Start Date Encounter Closed Date Diagnosis/Indication Diagnosis SNOMED-CT Code Diagnosis ICD10 Code Diagnosis Note [id number] KEVIN PATEL [facility] [address],[place] [address] 07/19/2022 11:14:29 07/19/2022 12:20:22 Weight loss 30514733 R63.4 improving with new foods Osteoporosis 78071534 M8 1.0 will need fu bone density screening Gastroesop hageal reflux disease 664118368 K21.9 stable Candidiasis 29444176 B37 .2 uses ketoconazo le cream (happens in her groin) Chronic sinusitis 615382 00 J32.0 recurrent acute on chronic infections Dehydration 50783158 E86 .0 has had issues with dehydratio n in the pastdoing better with now using liquid IV White bloo d cell count outside reference range 581169822 R79.89 related to her teeth infection Muscle weakness 97691820 M62.81 sees synergymay need an order from our office Anxiety 65859597 F41.1 discussed with her talking to her insurance for providerso oes not want one now [id number] KEVIN PATEL [facility] [address],[place] [address] 01/25/2023 15:45:51 01/25/2023 16:35:43 Anxiety 69350441 F41.1 stable Gastroesop hageal reflux disease 638356497 K21.9 stable Mitral valve disorder 11 788648 I05.1 stable Weight loss 34592417 R63 .4 improving with new foods Adult heal th examination 290127473 Z00.00 needs routine lab work Screening mammography 24 607663 Z12.31 would like screening MM Vertigo 192716640 R42 related to inner earonly happens with going up from laying to sitting [id number] KEVIN PATEL [facility] [address], [place] [address] 10/21/2023 14:06:41 10/22/2023 08:29:38 Depression screening 345415829 Z13.31 stable Candidiasis of skin 4988 3006 B37.2 needs refill White bloo d cell count outside reference range 596849876 R79.89 related to her teeth infectiond oes see a hematologi st through [facility] who monitors her blood counts Fatigue 26244008 R53.83 needs routine blood work 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 following with her dentist Pain in right thumb 1076 257948 033949 M79.644 her current PT suggested f/u with OTwill send up referral Otalgia of right ear 229 3549293 H92.01 will send referral over to ENT office [id number] KEVIN PATEL [facility] [address] [place] [address] 09/14/2024 10:15:26 09/14/2024 11:35:40 Renewal of prescription 526478436 Z76.0 stable Fatigue 00045206 R53.83 needs routine blood work Failure of dental prosthesis 015085962 M27.69 following with her dentist Screening mammography 24 633926 Z12.31 would like screening MM White bloo d cell count outside reference range 444494367 R79.89 still working with dentistdoe s see a hematologi st through [facility] who monitors her blood counts Candidiasis of skin 4988 3006 B37.2 stable, has been good for awhile, does have cream on active med list Bilateral hand weakness 2296256143 3663478 R29.898 will set up with alt therapist Internal hemorrhoids 904 67283 K64.8 stable Dyspnea 143782204 R06.00 ?COPD from previous PCP/pulm, hasn't been recheck in 6 years or so Bilateral hearing loss 80435032 H91.93 will set up Health Concerns Section Related Observation LastModified by Organization Detai ls LastModified Time None Recorded Concern Status LastModified by Organization Details LastModified Time None Recorded Advance Directives Directive None Recorded Payers Encounter Date Sequence Insurance Name Policy Number Policy Jiménez Covered Member ID Jiménez Member ID Guarantor Name 07/19/2022 2 [employer] - SENIOR SERVICES PLAN F (MEDICARE SUPPLEMENT) [id number] 2 Rosa Speckels [id number] Rosa M Speckels 07/19/2022 1 [place] Rosa M Speckels [id number] Rosa M Speckels 01/25/2023 2 [employer] - SENIOR SERVICES PLAN F (MEDICARE SUPPLEMENT) [id number] 2 Rosa Speckels [id number] Rosa M Speckels 01/25/2023 1 [place] Rosa M Speckels [id number] Rosa M Speckels 10/21/2023 2 [employer] - SENIOR SERVICES PLAN F (MEDICARE SUPPLEMENT) [id number] 2 Rosa Speckels [id number] Rosa M Speckels 10/21/2023 1 [place] Rosa M Speckels [id number] Rosa M Speckels 09/14/2024 2 [employer] - SENIOR SERVICES PLAN F (MEDICARE SUPPLEMENT) [id number] 2 Rosa Speckels [id number] Rosa M Speckels 09/14/2024 1 [place] Rosa M Speckels [id number] Rosa M Speckels Notes Date Note [...] she has a sensitive stomach (lives a [facility])the patient has a hard time with the food they get hershe gets pre-made meals for the Treadwellthe patient reports that when she has eats them she gets very bad gas and upset stomach teeth infections: the patient sees a lining stamper for mutliple teeth infections and teeth problemsthinks [...] has intermittent anxiety, anxiety attacks KEVIN PATEL [address] [place] [address], [address], [facility] 07/19/2022 12:13:47 01/26/20 23 text/htm l f/u anxiety: stabledoing really well GERD: stable Mitral valve disorder: stable weight loss: stable; up from last time BP is excellent the patient is doing wellfungal infection has cleared up both groin and right axilla has another tooth infectionsees her lining stamper working about getting a partialwill fu with them discussed probiotic use for since she has been using abx for her dental infectionsgas is most likely related to this will set up with cologuard againwasn't able to do it at her last pcp office saw Dr. Martínez to talk about blepharoplastydecided not to go through with procedure will hold on ENT referral for vertigo KEVIN PATEL [address] [place], [address], [facility] 01/25/2023 16:35:23 10/21/19 24 text/htm l c/o groin infection needs refill of the ketoconazole 2%worked really well with the armpit and groin areas, having a flare-upwill refill the script the patient has had 7 root canals in the last year due to recurrent infectionsthe patient is working with an oral surgeon, lining stamper and her regular dentist the patient sees them routinely the patient reports that she has issues developing fistulas sees joint finisher for evaluation for the WBC elevationmore related [...] due to milk use KEVIN PATEL [address] [place], [address], [facility] 10/21/2023 14:46:56 09/15/19 25 text/htm [...] symptoms hx of MVP KEVIN PATEL [address] [place], [address], [facility] 09/14/2024 11:09:26 OBGyn Episode No OBEpisode recorded.
[2024-09-18 18:56] LABS: Folate 14.5 ng/mL (> or = 4.0); Vitamin B12 256 pg/mL (200-900)
== END 2024-09-18 14:32 | disposition home or self-care (01) ==
LOC: HO.MANLDS 14:31
PROVIDERS: Visit Provider Internal Medicine
DX: Z13.89 Encounter for screening for other disorder (principal)
CPT/HCPCS: 36415; 82607; 82746